=== PATIENT | female | born 2000 | race Caucasian/White ===

== ENCOUNTER 2023-11-15 16:12 | Emergency (ER) | payer OTHER ==
[~2023-11-15] VITALS: Ht 162.6 cm; Wt 90.7 kg
[2023-11-15 16:51] VITALS: BP_SYST 128; PULSE 105; RESP 18; TEMP 99.4; O2SAT 100
[2023-11-15] MEDS: KETOROLAC TROMETHAMINE 30 MG VIAL IVP ONE (17:40)
[2023-11-15] MEDS: PANTOPRAZOLE SODIUM 40 MG/VIAL (PROTONIX) IVP ONE (17:42)
[2023-11-15] MEDS: ONDANSETRON HCL 4 MG/2 ML VIAL IVP ONE (17:42)
[2023-11-15 17:43] LABS: BASOPHILS % (AUTO) 0.1 % (0.0-2.0); EOSINOPHILS % (AUTO) 0.2 % (0.0-4.0); HEMATOCRIT 44.5 % (36-48); HEMOGLOBIN 15.4 g/dL (12.0-16.0); LYMPHOCYTES # (AUTO) 0.4 K/uL (1.0-5.5); LYMPHOCYTES % (AUTO) 4.4 % (20.5-51.5); MEAN CORPUSCULAR HEMOGLOBIN 30 pg (27-31); MEAN CORPUSCULAR HGB CONC 35 % (32-36); MEAN CORPUSCULAR VOLUME 86 fL (79.0-98.0); MONOCYTES # (AUTO) 0.2 K/uL (0.0-1.0); MONOCYTES % (AUTO) 2.3 % (1.7-9.3); NEUTROPHILS # (AUTO) 9.3 K/uL (1.8-7.7); PLATELET COUNT (AUTO) 319 K/uL (130-430); RED BLOOD CELL COUNT(AUTO) 5.19 MIL/uL (4.2-6.2); RED CELL DISTRIBUTION WIDTH 13.4 % (9.0-15.0)
[2023-11-15] MEDS: NACL 0.9% 1,000 ML IV ONE (17:45)
[2023-11-15 17:52] LABS: BILIRUBIN,DIRECT 0.2 mg/dL (0.0-0.3); CALCIUM 8.3 mg/dL (8.4-11.0); CREATININE 0.67 mg/dL (0.55-1.30); POTASSIUM 4.1 mmol/L (3.5-5.1); TOTAL BILIRUBIN 0.9 mg/dL (0.0-1.0); TOTAL PROTEIN, SERUM 7.9 g/dL (6.4-8.3)
[2023-11-15 17:57] LABS: INFLUENZA TYPE A Negative (NEGATIVE); INFLUENZA TYPE B NEGATIVE (NEGATIVE)
[2023-11-15] MEDS ORDERED: ONDA-8 TL (18:47)
[2023-11-15] MEDS ORDERED: OMEP40CA20 PO (18:47)
[2023-11-15 19:09] VITALS: BP_SYST 128; PULSE 105; RESP 18; TEMP 99.4; O2SAT 100
== END 2023-11-15 19:09 | disposition home or self-care (01) ==
LOC: SED 16:12
DX: K52.9 Noninfective gastroenteritis and colitis, unspecified (principal); R11.10 Vomiting, unspecified; Z79.899 Other long term (current) drug therapy; Z20.822 Contact with and (suspected) exposure to COVID-19
CPT/HCPCS: 99284; 96374; 96375; 96361; 87426; 80076; 80048; 83690; 83735; 85025; 36415; 87804 ×2; J1885; J2405; C9113; J7030